=== PATIENT | female | born 1950 | race American Indian/Alaskan Native ===

== ENCOUNTER 2021-05-05 11:02 | Emergency (ER) | payer MEDICARE ==
--- NOTE | 2021-05-05 11:07 | Emergency Department Report ---
ED Fall HPI - General Chief Complaint: Fall Stated Complaint: FALL Time Seen by Provider: 05/05/21 11:07 Source: patient, EMS Mode of arrival: Stretcher - History of Present Illness Initial Comments: Patient presents by EMS secondary to a fall. She was at the vascular center when she tripped and fell. Patient states that her shoe got caught on something and she fell forward. She did hit her head, causing a laceration above the right brow. There was no reported loss of consciousness. Patient is on Eliquis. She states that she is not having a headache. She has no neck pain or back pain. She states that she has some mild soreness in the head but that is it. She denies blurry vision or double vision. She has no numbness or tingling in the arms or legs. She did not get dizzy and fall. She states that she simply tripped. Patient does feel a little bit nauseous at this time. There is no other history of trauma or injury. - Related Data Allergies Allergy/AdvReac Type Severity Reaction Status Date / Time aripiprazole [From Abilify] AdvReac Unknown Verified 05/05/21 11:07 ciprofloxacin [From Cipro] AdvReac Unknown Verified 05/05/21 11:07 hydrocodone AdvReac Unknown Verified 05/05/21 11:07 oxycodone AdvReac Unknown Verified 05/05/21 11:07 pregabalin [From Lyrica] AdvReac Unknown Verified 05/05/21 11:07 quetiapine [From Seroquel] AdvReac Unknown Verified 05/05/21 11:07 sumatriptan [From Imitrex] AdvReac Unknown Verified 05/05/21 11:07 topiramate [From Topamax] AdvReac Unknown Verified 05/05/21 11:07 ED Review of Systems ROS: Stated complaint: FALL Other details as noted in HPI Comment: All other systems reviewed and negative Constitutional: denies: fever Eyes: denies: vision change ENT: denies: throat pain Respiratory: denies: cough Cardiovascular: denies: chest pain Endocrine: denies: unexplained weight loss Gastrointestinal: nausea. denies: abdominal pain Genitourinary: denies: dysuria Musculoskeletal: denies: back pain Skin: denies: rash Neurological: as per HPI Hematological/Lymphatic: easy bruising ED Physical Exam - General Limitations: No Limitations, Other (Pulse ox noted and normal) General appearance: alert, in no apparent distress - Head Head exam: Present: other (Right forehead laceration above the brow) - Eye Eye exam: Present: normal appearance, EOMI. Absent: scleral icterus - ENT ENT exam: Present: normal orophraynx, normal external ear exam - Neck Neck exam: Present: normal inspection. Absent: meningismus - Respiratory Respiratory exam: Present: normal lung sounds bilaterally. Absent: respiratory distress - Cardiovascular Cardiovascular Exam: Present: regular rate, normal rhythm - GI/Abdominal GI/Abdominal exam: Present: soft. Absent: tenderness - Extremities Exam Extremities exam: Present: normal capillary refill. Absent: calf tenderness - Back Exam Back exam: Absent: CVA tenderness (R), CVA tenderness (L) - Neurological Exam Neurological exam: Present: alert, oriented X3, CN II-XII intact, reflexes normal. Absent: motor sensory deficit - Psychiatric Psychiatric exam: Present: normal affect, normal mood - Skin Skin exam: Present: warm, dry ED Course Vital Signs 05/05/21 05/05/21 11:02 12:27 Temperature 97.5 F L Pulse Rate 60 Respiratory 18 Rate Blood Pressure 136/54 [Left] O2 Sat by Pulse 98 97 Oximetry - Reevaluation(s) Reevaluation #1: 05/05/21 11:07 CT was ordered. EMS was met upon arrival. Old records reviewed. Reevaluation #2: 05/05/21 13:12 CT was noted. Wound was cleaned and repaired and discharged. - Laceration /Wound Repair Head Wound Location: head Wound Length (cm): 3 Wound's Depth, Shape: superficial Wound Explored: clean Irrigated w/ Saline (ccs): 250 Betadine Prep?: Yes Wound Repaired With: Dermabond Sterile Dressing Applied?: Yes ED Medical Decision Making - Medical Decision Making Patient presented with head injury after a fall. She is anticoagulated. There is no evidence of skull fracture or subdural on CT. There is no evidence of epidural or subarachnoid hemorrhage on CT. Patient had no loss of consciousness. The wound was superficial and was repaired. She did not have any other injuries. Neck was cleared based on Nexus criteria. She did not have any distracting injury. She complained only of a mild headache. Patient does not have any neurologic deficit or symptom. She was treated symptomatically and referred for outpatient evaluation. Tetanus status was updated. Critical Care Time: No Critical care attestation.: If time is entered above; I have spent that time in minutes in the direct care of this critically ill patient, excluding procedure time. ED Disposition Clinical Impression: Fall Qualifiers: Encounter type: initial encounter Qualified Code(s): W19.XXXA - Unspecified fall, initial encounter Forehead laceration Qualifiers: Encounter type: initial encounter Qualified Code(s): S01.81XA - Laceration without foreign body of other part of head, initial encounter Disposition: HOME / SELF CARE / HOMELESS Is pt being admited?: No Condition: Stable Instructions: Wound Care, Adult, Laceration Care, Adult, [id number], Sutures, Jessica, or Adhesive Wound Closure Additional Instructions: Keep the wound clean. Do not use any type of ointment on the wound. Allow the Dermabond to wear off normally. Apply ice for swelling. Use Tylenol for pain. Continue home medication. Follow-up with your regular doctor for recheck. Referrals: PRIMARY CAREMD [Primary Care Provider] - 3-5 Days
--- NOTE | 2021-05-05 12:48 | Cat Scan Report ---
CT head/brain wo con INDICATION: Head injury on blood thinners. TECHNIQUE: All CT scans at this location are performed using CT dose reduction for ALARA by means of automated e xposure control. COMPARISON: None available. FINDINGS: There is no evidence of hemorrhage, hydrocephalus, brain edema, or mass effect/mass lesion. There is overall normal brain formation and brain volume for the patient's age. Ventricular and cisternal/sulc al size is normal for age. There is an extracranial forehead hematoma. There is no underlying calvari al fracture. IMPRESSION: 1. No acute intracranial abnormality. Signer Name: Ace Amin MD Signed: 05/05/2021 12:44 PM Workstation Name: [id number]
[2021-05-05] MEDS ORDERED: TETANUS,DIPH,PERTUSS(ACELL) VACCINE 0.5 ML SYRINGE IM ONE (13:17)
[2021-05-05 13:45] VITALS: BP 160/100
== END 2021-05-05 13:44 | disposition home or self-care (01) ==
LOC: ED 11:02
DX: S01.81XA Laceration without foreign body of other part of head, initial encounter (principal); Z88.8 Allergy status to other drugs, medicaments and biological substances; Z88.5 Allergy status to narcotic agent; Z79.899 Other long term (current) drug therapy; W18.39XA Other fall on same level, initial encounter; Y93.89 Activity, other specified; Y92.89 Other specified places as the place of occurrence of the external cause; Y99.8 Other external cause status
CPT/HCPCS: 70450; 90471; 90715; 99284